=== PATIENT | male | born 2000 | race Caucasian/White ===

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

== ENCOUNTER → 2022-05-11 14:02 | Outpatient (CLI) | payer OTHER, SELFPAY | PROVIDERS: Family Provider Family Medicine; PCP Family Medicine; Referring Provider Internal Medicine; Visit Provider Internal Medicine | DX: Z23 Encounter for immunization (principal) | CPT/HCPCS: 90471; 90686 ==

== ENCOUNTER 2023-01-20 17:45 | Emergency (ER) | payer OTHER, SELFPAY ==
--- NOTE | 2023-01-20 17:49 | DI.RAD.S_ITS ---
PROCEDURE: XR CHEST 1V INDICATIONS: Dysrhythmia TECHNIQUE: One view of the chest was acquired. COMPARISON: None. FINDINGS: Surgical changes and devices: None. Lungs and pleura: Lungs are clear. No pleural effusions or pneumothorax. Mediastinum: Mediastinal contours appear normal. Heart size is normal. Bones and chest wall: No suspicious bony lesions. Overlying soft tissues appear unremarkable. IMPRESSION: No acute cardiopulmonary abnormality. Dictated by: Nilton Walsh M.D. on 01/20/2023 at 17:56 Approved by: Nilton Walsh M.D. on 01/20/2023 at 17:57
--- NOTE | 2023-01-20 17:49 | ED_ITS ---
HPI - Arrhythmia/Palpitations General Chief Complaint: Arrhythmia/Palpitations Stated Complaint: arrythmia Time Seen by Provider: 01/20/23 17:48 Source: patient and RN notes reviewed Mode of arrival: Ambulatory Limitations: no limitations History of Present Illness HPI narrative: This is a 22-year-old male with history of SVT who developed tachycardia a few minutes prior to evaluation. Patient has had prior episodes he is had a monitor in the past he is not seen Cardiology. He states he will typically cardioverted on his own he is not required intervention in the past. Patient was actually here to work when he developed symptoms. He feels palpitations that his heart rates very fast little bit lightheaded. No syncope. No chest pain no shortness of breath no diaphoresis. No nausea or vomiting, other GI or urinary symptoms. No new swelling in extremities. Patient states started having issues around sophomore year of high school. He has had a monitor such as a Holter or ZIO patch in the past. He states typically about once a year he has a episode sometimes more frequently states it is probably been 12 or 14 months since his last episode. Denies any daily medications. No surgeries. Reported allergy with vomiting to oxycodone. No other known drug allergies. No tobacco, alcohol or illicit. No known cardiac rhythm issues in the family. Patient's mother did have pulmonary emboli DVT. Patient has no known embolic history. Related Data Home Medications Medication Instructions Recorded Confirmed No Known Home Medications 09/12/19 Allergies Allergy/AdvReac Type Severity Reaction Status Date / Time oxycodone [OXYCODONE] AdvReac Intermediate VOMITING Verified 09/22/20 14:18 Review of Systems Review of Systems ROS Unobtainable: All systems reviewed & are unremarkable except as noted in HPI and below Patient History Surgical History Osteochondroma of femur Family History Father Melanoma Substance abuse Mother Hypothyroidism Social History Smoking Status: Never smoker alcohol intake: never substance use type: does not use Smoking Status: Never smoker alcohol intake frequency: other Substance Use Type: does not use Exam Narrative Exam Narrative: GENERAL: Alert and oriented x three, well-nourished male in mild distress. HEENT: Head normocephalic, atraumatic, EOMI, pupils reactive, face symmetric, moist mucous membranes NECK: Supple, full range of motion CARDIOVASCULAR: Rapid Regular rate and rhythm without murmurs, rubs or gallops. Heart rate was proximally 180 on telemetry consistent with pulse in the room. Patient appeared to cardiovert and slow to a sinus rhythm in the 100-90 range while I was room. No JVD. No swelling bilateral lower extremities. RESPIRATORY: Breath sounds equal bilaterally, no wheezes rales or rhonchi. No tachypnea or accessory muscle use. ABDOMEN: Soft, nontender. Normoactive bowel sounds all 4 quadrants. No guarding or rebound, rigidity, no mass : No CVA tenderness EXTREMITIES: Normal range of motion, no clubbing or edema. Neurovascularly intact NEUROLOGICAL: Cranial nerves II through XII grossly intact. Moving all extremities SKIN: Warm, dry, no petechiae, no rashes or lesions. Initial Vital Signs Initial Vital Signs: Vital Signs Pulse Rate 208 H 01/20/23 17:56 Respiratory Rate 21 01/20/23 17:56 Blood Pressure 167/78 H 01/20/23 17:56 Pulse Oximetry 98 01/20/23 17:56 Oxygen Delivery Method Room Air 01/20/23 17:56 Course Orders Ordered: ED Orders 01/20/23 17:49 XR chest 1V Stat EKG-12 Lead Stat 01/20/23 17:52 Complete Blood Count AUTO DIFF Stat Comprehensive Metabolic Panel Stat D Dimer Stat Lipase Stat MAG [Magnesium] Stat NT-proBNP (BNP-Adult 18+) Stat Troponin & CK Cardiac Panel Stat Sodium Chloride (Normal Saline 0.9%) 1,000 mls @ 150 mls/hr IV CONT JOE Last Admin: 01/20/23 18:07 Dose: 150 mls/hr Documented By: ST Vital Signs Vital signs: Vital Signs - 8 hr 01/20/23 17:56 Pulse Rate 208 H Respiratory Rate 21 Blood Pressure 167/78 H Pulse Oximetry 98 Oxygen Delivery Method Room Air MDM - Arrhythmia/Palpitations Lab Data 01/20/23 17:52 01/20/23 17:52 Labs: Lab Results 01/20/23 01/20/23 01/20/23 Range/Units 17:52 17:52 17:52 WBC 10.3 (4.5-11.0) X10^3/uL RBC 5.67 (4.5-5.9) X10^6/uL Hgb 16.9 (13.5-17.5) g/dL Hct 49.2 (41-53) % MCV 86.7 (80-100) fL MCH 29.8 (26-34) PG MCHC 34.4 (30-36) % RDW 14.0 (11.6-14.8) % Plt Count 295 (150-400) X10^3/uL Neut % (Auto) 60.0 (50-75) % Lymph % (Auto) 27.7 (25-40) % [place] % (Auto) 8.0 (3-14) % Eos % (Auto) 3.4 (2-4) % Baso % (Auto) 0.9 (0-2) % Neut # (Auto) 6200 (5247-5124) /uL Lymph # (Auto) 2900 (3440-3531) /uL [place] # (Auto) 800 (0-900) /uL Eos # (Auto) 400 (0-450) /uL Baso # (Auto) 100 (0-100) /uL D-Dimer 224 (<500) ng/ml Sodium 137 (137-145) mmol/L Potassium 4.7 (3.4-5.1) mmol/L Chloride 105 (98-107) mmol/L Carbon Dioxide 21 L (22-32) mmol/L BUN 15 (9-20) mg/dL Creatinine 1.04 (0.66-1.25) mg/dL Estimated GFR > 60 (>60) mL/min BUN/Creatinine Ratio 14.4 (6-22) Glucose 95 (70-100) mg/dL Calcium 9.5 (8.4-10.2) mg/dL Magnesium 2.4 H (1.6-2.3) mg/dL Total Bilirubin 0.8 (0.2-1.3) mg/dL AST 51 (17-59) IU/L ALT 125 H (<50) IU/L Alkaline Phosphatase 92 (38-126) U/L Total Creatine Kinase 136 (55-170) U/L Troponin I < 0.012 (0.01-0.034) ng/mL NT-Pro-B Natriuret Pep 16 (<125) pg/mL Total Protein 8.1 (6.3-8.2) g/dL Albumin 4.7 (3.5-5.0) g/dL Globulin 3.4 (1.7-4.1) g/dL Albumin/Globulin Ratio 1.4 (1.0-2.8) Lipase 24 (23-300) U/L Imaging Data Chest x-ray: Radiologist's Impresson: Avtar Peterson??22??M??2000 ? Allergy/Adv: oxycodone Close Chest X-Ray (Signed) Nilton Walsh - 01/20/23 [place] [address] XRay Report Signed Patient: Avtar Peterson MR#: [id number] : 2000 Acct:[id number] Age/Sex: 22 / M Date of Service: 01/20/23 Loc: ED Accession Number: [id number] ?? Procedure: XR chest 1V Ordering Provider: Yazmin Arguello D.O. PROCEDURE:? XR CHEST 1V ? INDICATIONS:? Dysrhythmia ? TECHNIQUE:? One view of the chest was acquired.? ? COMPARISON:? None. ? FINDINGS:? ? Surgical changes and devices:? None.? ? Lungs and pleura:? Lungs are clear.? No pleural effusions or pneumothorax.? ? Mediastinum:? Mediastinal contours appear normal.? Heart size is normal.? ? Bones and chest wall:? No suspicious bony lesions.? Overlying soft tissues appear unremarkable.? ? IMPRESSION:? No acute cardiopulmonary abnormality. ? ? ? Dictated by: Nilton Walsh M.D. on 01/20/2023 at 17:56 ? ? Approved by: Nilton Walsh M.D. on 01/20/2023 at 17:57?? ECG Data Attestation: I personally reviewed and interpreted this ECG as follows: Prior ECG tracings: available for review Interpretation: Patient appeared to cardiovert to sinus rhythm prior to EKG but was noted to have a consistent heart rate in the 180s on telemetry consistent with SVT. Patient has prior from 01/22/2021 which appears similar. No acute changes. EKG shows sinus rhythm rate of 92 IA 140 QRS 82 QTC 437. No acute changes has prior from 3 06/03/2021 which appears similar. MDM Narrative Medical decision making narrative: 22-year-old male with several years of history of SVT, patient states he is had monitor in the past. Has intermittent symptoms. Patient cardioverted without any intervention here in the department. Labs show slightly elevated magnesium CBC is negative, D-dimer is negative, CO2 is 21, electrolytes otherwise normal, ALT is 125, negative LFTs otherwise troponins negative with negative BNP at 16. Chest x-ray shows no acute change. Sinus rhythm rate of 92 IA 140 QRS [address]TC [address] No acute [address] changes the patient was clearly in atrial tachycardia initially on evaluation with telemetry. Patient has not required any additional intervention. Did receive some fluids. No additional reoccurrences. He is always been able to resolve symptoms with vagal maneuvers blood probably benefit from follow-up outpatient. Discharge Plan Departure Patient Disposition: Home Clinical Impression: SVT (supraventricular tachycardia) Instructions: DI for Paroxysmal Supraventricular Tachycardia Activity Restrictions/Additional Instructions: Please follow-up with cardiology. Referral is included below. Please call to set up an appointment. Avoid supplements, caffeine or energy drinks. Make sure you are drinking plenty of fluids and plenty of sleep. Please return for recurrent episodes, persistent fast heart rate, lightheadedness, passing out, new chest pain, shortness of breath, new swelling in her extremities or other new or concerning changes. Prescriptions: No Action No Known Home Medications Referrals: Ashley Navarro MD [Primary Care Provider] - Veronica Cross MD [Physician] - Stand Alone Forms: Patient Portal/API
[2023-01-20 17:56] VITALS: BP 167/78; PULSE 208; RESP 21; O2SAT 98; BMI 27.6
[2023-01-20 18:02] LABS: Add Manual Diff / Slide Review NO; Basophils Absolute Auto 100 /uL (0-100); Basophils Percent Auto 0.9 % (0-2); Eosinophils Absolute Auto 400 /uL (0-450); Eosinophils Percent Auto 3.4 % (2-4); Hematocrit 49.2 % (41-53); Hemoglobin 16.9 g/dL (13.5-17.5); Lymphocytes Absolute Auto 2900 /uL (1100-4500); Lymphocytes Percent Auto 27.7 % (25-40); Mean Corpuscular HGB Conc 34.4 % (30-36); Mean Corpuscular Hemoglobin 29.8 PG (26-34); Mean Corpuscular Volume 86.7 fL (80-100); Monocytes Absolute Auto 800 /uL (0-900); Neutrophils Absolute Auto 6200 /uL (1500-7000); Platelet Count 295 X10^3/uL (150-400); Red Blood Cell Count 5.67 X10^6/uL (4.5-5.9); White Blood Cell Count 10.3 X10^3/uL (4.5-11.0)
[2023-01-20] MEDS: SODIUM CHLORIDE 0.9% 1,000 ML 150 ML IV (18:07)
[2023-01-20 18:08] LABS: D Dimer 224 ng/ml (<500)
[2023-01-20 18:12] LABS: Albumin 4.7 g/dL (3.5-5.0); Albumin Globulin Ratio 1.4 (1.0-2.8); Alkaline Phosphatase 92 U/L (38-126); Aspartate Aminotransferase 51 IU/L (17-59); BUN Creatinine Ratio 14.4 (6-22); Bilirubin Total 0.8 mg/dL (0.2-1.3); Blood Urea Nitrogen 15 mg/dL (9-20); Calcium 9.5 mg/dL (8.4-10.2); Carbon Dioxide 21 mmol/L (22-32); Chloride 105 mmol/L (98-107); Creatine Kinase 136 U/L (55-170); Estimated Glomerular Filt Rate > 60 mL/min (>60); Globulin 3.4 g/dL (1.7-4.1); Glucose 95 mg/dL (70-100); Lipase 24 U/L (23-300); Magnesium 2.4 mg/dL (1.6-2.3); Sodium 137 mmol/L (137-145); Total Protein 8.1 g/dL (6.3-8.2)
[2023-01-20 18:21] LABS: NT-proBNP (BNP-Adult 18+) 16 pg/mL (<125)
[2023-01-20 18:22] LABS: HEMOLYSIS 72 (0-50)
[2023-01-20 18:23] LABS: Alanine Aminotransferase 125 IU/L (<50); Potassium 4.7 mmol/L (3.4-5.1)
[2023-01-20 18:49] LABS: Troponin I < 0.012 ng/mL (0.01-0.034)
== END 2023-01-20 19:22 | disposition home or self-care (01) ==
PROVIDERS: Emergency Provider Emergency Medicine; Family Provider Family Medicine; PCP Family Medicine
DX: I47.1 Supraventricular tachycardia (principal)
CPT/HCPCS: 36415; 71045; 80053; 82550; 83690; 83735; 83880; 84484; 85025; 85379; 93005; 99284

== ENCOUNTER → 2023-04-22 13:22 | Outpatient (CLI) | payer OTHER, SELFPAY | PROVIDERS: Family Provider Family Medicine; PCP Family Medicine; Referring Provider Family Medicine; Visit Provider Family Medicine | DX: Z23 Encounter for immunization (principal) | CPT/HCPCS: 90471; 90686 ==

== ENCOUNTER → 2023-07-29 14:36 | Outpatient (CLI) | payer OTHER, SELFPAY | PROVIDERS: Family Medicine; Family Provider Family Medicine; PCP Family Medicine; Referring Provider Family Medicine; Visit Provider Family Medicine | DX: Z13.0 Encounter for screening for diseases of the blood and blood-forming organs and certain disorders involving the immune mechanism (principal); Z83.2 Family history of diseases of the blood and blood-forming organs and certain disorders involving the immune mechanism | CPT/HCPCS: 36415; 81240 ==

== ENCOUNTER → 2024-04-17 15:42 | Outpatient (CLI) | payer OTHER, SELFPAY | PROVIDERS: Family Provider Family Medicine; PCP Family Medicine; Referring Provider Internal Medicine; Visit Provider Internal Medicine | DX: Z23 Encounter for immunization (principal) | CPT/HCPCS: 90471; 90656 ==